=== PATIENT | male | born 1960 ===

== ENCOUNTER 2017-06-09 06:36 | Day surgery (SDC) | payer MEDICARE ==
[2016-12-17 20:46] VITALS: BMI 24.3
[2017-06-09 07:45] VITALS: O2SAT 100
[2017-06-09] MEDS ORDERED: Lactated Ringer's 500 ML IV ONE (08:06)
--- NOTE | 2017-06-09 08:08 | CP.SDSHP ---
Same Day Surgery H & P - History Proposed Procedure: Screening colonoscopy Pre-Op Diagnosis: Screening for colon cancer - Previous Medical/Surgical History Cardiac: Hypertension Previous Surgical History: Cholecystectomy - Allergies Allergies: Allergies No Known Allergies Allergy (Verified 06/09/17 07:21) - Current Medications Current Medications: See reconciliation sheet - Physical Exam General Appearance: WD WN male in NAD Vital Signs: Vital Signs 06/09/17 07:05 Temperature 97.5 F L Pulse Rate 73 Respiratory 19 Rate Blood Pressure 122/88 O2 Sat by Pulse 100 Oximetry Mental Status: Alert & Oriented x3 Neuro: WNL Heart: WNL Lungs: WNL GI: WNL - {Optional Preform as Required} Abdomen: WNL - Impression Impression: Screening for colon cancer Pt. Evaluated Today:Candidate for Anesthesia & Procedure: Yes - Date & Time Date: 06/09/17 Time: 08:08 Short Stay Discharge - Short Stay Discharge Admitting Diagnosis/Reason for Visit: ENCOUNTER FOR SCREENING FOR MALIGNANT NEOPLASM OF Disposition: HOME/ ROUTINE Referrals: Jaydon Campbell MD [Primary Care Provider] -
[2017-06-09] MEDS ORDERED: Propofol 10 mg/ml Inj (20 ML) ONE (08:10)
[2017-06-09 10:08] VITALS: TEMP 97
[2017-06-09 10:15] VITALS: BP 120/78; PULSE 80; RESP 18
== END 2017-06-09 09:30 | disposition home or self-care (01) ==
LOC: C.ENDO 06:36
PROVIDERS: ATTEND Internal Medicine Gastroenterology
DX: K63.89 Other specified diseases of intestine (principal)
CPT/HCPCS: 45380; 88305; J2001; J2704; J7120